=== PATIENT | female | born 1970 | race Caucasian/White ===

== ENCOUNTER 2018-01-04 13:23 | Inpatient (IN) | payer OTHER ==
[2018-01-04 17:06] VITALS: BMI 19.3
--- NOTE | 2018-01-04 17:31 | HP ---
COWS - Scale Resting Pulse: 0= [place] 80 or Below Sweatin=Flushed/Facial Moisture Restless Observation: 1= Difficult to Sit Still Pupil Size: 0= Normal to Room Light Bone or Joint Aches: 1= Mild Discomfort Runny Nose/ Eye Tearin= Runny Nose/Eyes GI Upset > 30mins: 2= Nausea/Diarrhea Tremor Observation: 1= Tremor Jackson, Not Seen Yawning Observation: 1= 1-2x During Session Anxiety or Irritability: 2=Irritable/Anxious Goose Flesh Skin: 0=Smooth Skin COWS Score: 12 Admission [facility] Chief Complaint: Heroin withdrawal symptoms. Allergies/Adverse Reactions: Allergies Allergy/AdvReac Type Severity Reaction Status Date / Time No Known Allergies Allergy Verified 01/04/18 17:11 History of Present Illness: Patient presents for Heroin withdrawal symptoms. Started using heroin and cocaine and age 22. Sniffs up to 8 bags daily. Last dose today. Also smokes 1 pack of cigarettes daily and non-prescription Methadone. Has PMH of HTN, Depression, Anxiety and DM. Patient also shows external pharmacy history for Genvoya and Truvada. Patient denies having HIV and state she took medication to prevent disease. Has stopped taking medication x one year. Denies SI/HI and suicide attempts. Exam Limitations: No Limitations - Ebola screening Have you traveled outside of the country in the last 21 days: No Have you had contact with anyone from an Ebola affected area: No Have you been sick,other than usual withdrawal symptoms: No Do you have a fever: No - Review of Systems Constitutional: Night Sweats, Changes in sleep, Unexplained wgt Loss EENT: reports: Tearing, Nose Congestion Respiratory: reports: Cough Cardiac: reports: No Symptoms Reported GI: reports: Diarrhea, Nausea, Poor Fluid Intake, Abdominal cramping : reports: No Symptoms Reported Musculoskeletal: reports: Back Pain, Joint Pain, Muscle Pain Integumentary: reports: Sweating Neuro: reports: Headache, Tremors Endocrine: reports: Unexplained Weight Loss Hematology: reports: No Symptoms Reported Psychiatric: reports: Orientated x3, Anxious, Depressed Patient History - Patient Medical History Hx Anemia: No Hx Asthma: No Hx Chronic Obstructive Pulmonary Disease (COPD): No Hx Cancer: No Hx Cardiac Disorders: No Hx Congestive Heart Failure: No Hx Hypertension: Yes Hx Hypercholesterolemia: No Hx Pacemaker: No HX Cerebrovascular Accident: No Hx Seizures: No Hx Dementia: No Hx Diabetes: Yes Hx Gastrointestinal Disorders: No Hx Liver Disease: No Hx Genitourinary Disorders: No Hx Sexually Transmitted Disorders: No Hx Renal Disease (ESRD): No Hx Thyroid Disease: No Hx Human Immunodeficiency Virus (HIV): No Hx Hepatitis C: No Hx Depression: Yes Hx Suicide Attempt: No Hx Bipolar Disorder: No Hx Schizophrenia: No - Patient Surgical History Past Surgical History: No Hx Neurologic Surgery: No Hx Cataract Extraction: No Hx Cardiac Surgery: No Hx Lung Surgery: No Hx Breast Surgery: No Hx Breast Biopsy: No Hx Abdominal Surgery: No Hx Appendectomy: No Hx Cholecystectomy: No Hx Genitourinary Surgery: No Hx Section: Yes (C section x 2) Hx Orthopedic Surgery: No Hx Hysterectomy: No Anesthesia Reaction: No - PPD History Previous Implant?: No Documented Results: Negative w/o proof Implanted On Prior R Admission?: No PPD to be Administered?: Yes - Reproductive History Patient is a Female of Child Bearing Age (11 -55 yrs old): Yes Patient : No - Smoking Cessation Smoking history: Current every day smoker Have you smoked in the past 12 months: Yes Aproximately how many cigarettes per day: 20 Hx Chewing Tobacco Use: No Initiated information on smoking cessation: Yes 'Breaking Loose' booklet given: 01/04/18 - Substance & Tx. History Hx Alcohol Use: No Hx Substance Use: Yes Substance Use Type: Cocaine, Heroin Hx Substance Use Treatment: Yes - Substances Abused Heroin Route: SNIFF Frequency: Daily Amount used: 8 BAGS Age of first use: 22 Date of Last Use: 01/04/18 Cocaine Route: Smoking Frequency: Daily Amount used: $50 Age of first use: 22 Date of Last Use: 01/04/18 Family Disease History - Family Disease History Family Disease History: Diabetes: Mother (), Heart Disease: Father ( ), Mother Admission Physical Exam BHS - Vital Signs Vital Signs: Vital Signs - 24 hr 01/04/18 16:32 Temperature 97.5 F L Pulse Rate 63 Respiratory 18 Rate Blood Pressure 108/65 - Physical General Appearance: Yes: Disheveled, Cachetic, Tremorous, Anxious HEENTM: Yes: EOMI, Hearing grossly Normal, Normal ENT Inspection, Normocephalic , Normal Voice, VLADIMIR, Pharynx Normal, Nasal Congestion Respiratory: Yes: Within Normal Limits, Chest Non-Tender, Lungs Clear, Normal Breath Sounds, No Respiratory Distress, No Accessory Muscle Use Neck: Yes: No masses,lesions,Nodules, Supple, Trachea in good position Breast: Yes: Breast Exam Deferred Cardiology: Yes: Regular Rhythm, Regular Rate, S1, S2 Abdominal: Yes: Normal Bowel Sounds, Non Tender, Flat, Soft Genitourinary: Yes: Within Normal Limits Back: Yes: Muscle Spasm Musculoskeletal: Yes: Gait Steady, Back pain, Muscle Pain Extremities: Yes: Normal Range of Motion, Non-Tender, Tremors 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 NML intact, Fully Oriented, Alert, Depressed Affect Integumentary: Yes: Normal Color, Warm, Moist Lymphatic: Yes: Within Normal Limits - Diagnostic (1) Opioid dependence with withdrawal Current Visit: Yes Status: Acute (2) Nicotine dependence Current Visit: Yes Status: Acute Qualifiers: Nicotine product type: cigarettes Substance use status: uncomplicated Qualified Code(s): F17.210 - Nicotine dependence, cigarettes, uncomplicated (3) Cocaine dependence Current Visit: Yes Status: Acute Qualifiers: Substance use status: uncomplicated Qualified Code(s): F14.20 - Cocaine dependence, uncomplicated (4) Diabetes 1.5, managed as type 2 Current Visit: Yes Status: Chronic (5) HTN (hypertension) Current Visit: Yes Status: Chronic Qualifiers: Hypertension type: essential hypertension Qualified Code(s): I10 - Essential (primary) hypertension (6) Weight loss Current Visit: Yes Status: Acute (7) Depressed affect Current Visit: Yes Status: Acute Cleared for Admission S - Detox or Rehab [facility] Level of Care: Medically Managed Detox Regimen/Protocol: Methadone [facility] Breath Alcohol Content Breath Alcohol Content: 0 Urine Pregancy Test - Result Urine Test Results: Negative- NO Line Present Urine Drug Screen - Results Drug Screen Negative: No Urine Drug Screen Results: ANGELA-Cocaine, OPI-Opiates, MTD-Methadone
[2018-01-04] MEDS ORDERED: guaiFENesin/D-METHORPHAN HB 10 ML UNIT-DOSE CUPS PO PRN (17:44)
[2018-01-04] MEDS ORDERED: MAGNESIUM CITRATE 300 ML BOTTLE PO PRN (17:44)
[2018-01-04] MEDS ORDERED: ACETAMINOPHEN 325 MG TABLET (FP) PO PRN (17:44)
[2018-01-04] MEDS ORDERED: MENTHOL/PHENOL 1 EACH UD MM PRN (17:44)
[2018-01-04] MEDS ORDERED: hydrOXYzine PAMOATE 50 MG CAPSULE (FP) PO PRN (17:44)
[2018-01-04] MEDS ORDERED: MAGNESIUM HYDROX 2400MG/30ML ORAL SUSPENSION 30 ML CUP PO PRN (17:44)
[2018-01-04] MEDS ORDERED: MAG HYDROX/AL HYDROX/SIMETH 30 ML UNIT-DOSE CUP PO PRN (17:44)
[2018-01-04] MEDS ORDERED: P-EPHED 60MG/TRIPROLIDI 2.5MG TABLET PO PRN (17:44)
[2018-01-04] MEDS ORDERED: IBUPROFEN 400 MG TABLET (FP) PO PRN (17:44)
[2018-01-04] MEDS ORDERED: LOPERAMIDE HCL 2 MG CAPSULE PO PRN (17:44)
[2018-01-04] MEDS ORDERED: METHADONE HCL 10 MG TABLET (FOR DETOX USE ONLY) PO ONE ×2 (18:48→23:00)
[2018-01-04] MEDS: diazePAM 5 MG TABLET PO PRN (19:10)
[2018-01-04] MEDS ORDERED: MELATONIN 5 MG TABLETS PO PRN (22:00)
[2018-01-04] MEDS ORDERED: INSULIN ASPART 2 UNIT SQ SCH (22:00)
[2018-01-04] MEDS: THIAMINE HCL 100 MG TABLET (FP) PO SCH (22:09)
[2018-01-04] MEDS: INSULIN SLIDING SCALE (NOVOLOG) 1 VIAL SQ SCH (23:04)
[2018-01-05] MEDS: diazePAM 5 MG TABLET PO PRN ×2 (05:17→22:17)
[2018-01-05] MEDS: INSULIN SLIDING SCALE (NOVOLOG) 1 VIAL SQ SCH ×4 (07:57→22:20)
[2018-01-05] MEDS: INSULIN (LEVEMIR) 100 UNITS/ML UNITS SQ SCH (08:04)
[2018-01-05] MEDS ORDERED: METHADONE HCL 10 MG TABLET (FOR DETOX USE ONLY) PO ONE (10:00)
[2018-01-05] MEDS: LISINOPRIL 20 MG TABLET (FP) PO SCH (10:30)
[2018-01-05] MEDS: PRENATAL VITAMINS W/ FOLIC ACID TABLET (FP) PO SCH (10:31)
[2018-01-05] MEDS: NICOTINE POLACRILEX 2 MG GUM BC PRN (10:33)
[2018-01-05 10:48] LABS: CHLORIDE 108 mmol/L (98-107); HEMATOCRIT 34.2 % (32.4-45.2); HEMOGLOBIN 11.5 GM/dL (10.7-15.3); MCH 33.4 pg (25.7-33.7); MCHC 33.7 g/dl (32.0-36.0); MEAN CELL VOLUME 99.1 fl (80-96); MEAN PLT VOLUME 7.9 fl (7.5-11.1); PLATELET COUNT 162 K/MM3 (134-434); POTASSIUM 4.1 mmol/L (3.5-5.1); RBC 3.46 M/mm3 (3.60-5.2); RDW 15.3 % (11.6-15.6); SODIUM 141 mmol/L (136-145); WHITE BLOOD COUNT 4.2 K/mm3 (4.0-10.0)
[2018-01-05 11:04] LABS: ALBUMIN 2.7 g/dl (3.4-5.0); ALK PHOS 67 U/L (45-117); ANION GAP 2 (8-16); BILIRUBIN,TOTAL 0.2 mg/dL (0.2-1.0); BLOOD UREA NITROGEN 20 mg/dL (7-18); CALCIUM 8.6 mg/dL (8.5-10.1); CO2 31 mmol/L (21-32); CREATININE 0.8 mg/dL (0.55-1.02); GLUCOSE,RANDOM 94 mg/dL (74-106); SGOT/AST 27 U/L (15-37); SGPT/ALT 21 U/L (12-78); TOT PROT 5.8 g/dl (6.4-8.2)
[2018-01-05] MEDS: NICOTINE 21 MG/24 HOURS TOPICAL PATCH TD SCH (12:01)
--- NOTE | 2018-01-05 13:26 | PN ---
BHS COWS - Scale Resting Pulse: 1= [place] 81-100 Sweatin= Chills/Flushing Restless Observation: 1= Difficult to Sit Still Pupil Size: 0= Normal to Room Light Bone or Joint Aches: 2= Severe Diffuse Aches Runny Nose/ Eye Tearin= Nasal Congestion GI Upset > 30mins: 2= Nausea/Diarrhea Tremor Observation of Outstretched Hands: 2= Slight Tremor Visible Yawning Observation: 0= None Anxiety or Irritability: 1=Feels Anxious/Irritable Goose Flesh Skin: 3=Piloerection COWS Score: 14 BHS Progress Note (SOAP) Subjective: Tremors, sweats, diarrhea, interrupted sleep, restlessness Objective: 01/05/18 13:25 Vital Signs 01/05/18 01/05/18 06:25 10:00 Temperature 97.9 F 97.5 F L Pulse Rate 88 87 Respiratory 16 18 Rate Blood Pressure 108/66 112/71 Laboratory Last Values WBC 4.2 K/mm3 (4.0-10.0) 01/05/18 07:40 RBC 3.46 M/mm3 (3.60-5.2) L 01/05/18 07:40 Hgb 11.5 GM/dL (10.7-15.3) 01/05/18 07:40 Hct 34.2 % (32.4-45.2) 01/05/18 07:40 MCV 99.1 fl (80-96) H 01/05/18 07:40 MCH 33.4 pg (25.7-33.7) 01/05/18 07:40 MCHC 33.7 g/dl (32.0-36.0) 01/05/18 07:40 RDW 15.3 % (11.6-15.6) 01/05/18 07:40 Plt Count 162 K/MM3 (134-434) 01/05/18 07:40 MPV 7.9 fl (7.5-11.1) 01/05/18 07:40 Sodium 141 mmol/L (136-145) 01/05/18 07:40 Potassium 4.1 mmol/L (3.5-5.1) 01/05/18 07:40 Chloride 108 mmol/L (98-107) H 01/05/18 07:40 Carbon Dioxide 31 mmol/L (21-32) 01/05/18 07:40 Anion Gap 2 (8-16) L 01/05/18 07:40 BUN 20 mg/dL (7-18) H 01/05/18 07:40 Creatinine 0.8 mg/dL (0.55-1.02) 01/05/18 07:40 Creat Clearance w eGFR > 60 (>60) 01/05/18 07:40 POC Glucometer 91 UNITS (80-120) 01/05/18 11:55 Random Glucose 94 mg/dL (74-106) 01/05/18 07:40 Calcium 8.6 mg/dL (8.5-10.1) 01/05/18 07:40 Total Bilirubin 0.2 mg/dL (0.2-1.0) 01/05/18 07:40 AST 27 U/L (15-37) 01/05/18 07:40 ALT 21 U/L (12-78) 01/05/18 07:40 Alkaline Phosphatase 67 U/L (45-117) 01/05/18 07:40 Total Protein 5.8 g/dl (6.4-8.2) L 01/05/18 07:40 Albumin 2.7 g/dl (3.4-5.0) L 01/05/18 07:40 RPR Titer Nonreactive (NONREACTIVE) 01/05/18 07:40 HIV 1&2 Antibody Screen Negative 01/05/18 07:40 HIV P24 Antigen Negative 01/05/18 07:40 Labs noted Assessment: 01/05/18 13:25 Withdrawal sx Plan: Continue detox
--- NOTE | 2018-01-05 14:39 | EKG ---
Test Reason : Blood Pressure : / mmHG Vent. Rate : 064 BPM Atrial Rate : 064 BPM P-R Int : 136 ms QRS Dur : 084 ms QT Int : 444 ms P-R-T Axes : 033 047 044 degrees QTc Int : 458 ms NORMAL SINUS RHYTHM NORMAL ECG NO PREVIOUS ECGS AVAILABLE Confirmed by MD Dilan, Garfield ([id number]) on 01/05/2018 2:39:31 PM Referred By: Confirmed By:Garfield Kong MD
--- NOTE | 2018-01-05 16:25 | CONSULT ---
[facility] Psychiatric Consult - Data Date of interview: 01/05/18 Admission source: [facility] Identifying data: First admission to [facility] for this 47 y/o female seeking detox treatment on for heroin and cocaine dependence.Patient is ,a mother of six,homeless,unemployed and supported on SSI benefits. Substance Abuse History: Confirmed by the patient in this interview.See details in current [facility] report. Smoking history: Current every day smoker. Have you smoked in the past 12 months: Yes. Aproximately how many cigarettes per day: 20. Hx Chewing Tobacco Use: No. Initiated information on smoking cessation: Yes. 'Breaking Loose' booklet given: 01/04/18. - Substance & Tx. History. Hx Alcohol Use: No. Hx Substance Use: Yes. Substance Use Type: Cocaine, Heroin. Hx Substance Use Treatment: Yes. - Substances Abused. Heroin. Route: SNIFF. Frequency: Daily. Amount used: 8 BAGS. Age of first use: 22. Date of Last Use: 01/04/18. Cocaine. Route: Smoking. Frequency: Daily. Amount used: $50. Age of first use: 22. Date of Last Use: 01/04/18 Medical History: Remarkable for peripheral neuropathy,diabetes mellitus, hypertension,past history of withdrawal-related seizures,spinal stenosis, chronic lummbar pain and two sections. Psychiatric History: No reported history of psychiatric hospitalizations.Diagnosed with Bipolar Disorder.Patient indicates that she " used to " be on seroquel and olanzapine.NOT taken for past two months as per self-report.Ms Hadley states that she sees a psychiatrist at a program in the [place] (unable to recall name of clinic).On suboxone maintenace.Patient denies history of suicide attempts. Physical/Sexual Abuse/Trauma History: Patient denies. Additional Comment: Urine Drug Screen Results: ANGELA-Cocaine, OPI-Opiates, MTD- Methadone.Noted. Mental Status Exam - Mental Status Exam Alert and Oriented to: Time, Place, Person Cognitive Function: Grossly Intact Patient Appearance: Disheveled (appears much older than stated age) Mood: Nervous, Withdrawn Affect: Mood Congruent, Constricted Patient Behavior: Sedated (moderately ), Fatigued, Appropriate, Cooperative Speech Pattern: Delayed, Slurred Voice Loudness: Moderately Soft/Quiet Thought Process: Goal Oriented Thought Disorder: Not Present Hallucinations: Denies Suicidal Ideation: Denies Insight/Judgement: Poor Sleep: Poorly (sleepy during interview), Difficulty falling asleep Appetite: Poor, Weight loss Gait/Station: Other (not observed ; patient did not get out of bed during interview) Psychiatric Findings - Problem List ([place] 1, 2,3) (1) Opioid dependence with withdrawal Current Visit: Yes Status: Acute (2) Cocaine dependence Current Visit: Yes Status: Acute Qualifiers: Substance use status: uncomplicated Qualified Code(s): F14.20 - Cocaine dependence, uncomplicated (3) Nicotine dependence Current Visit: Yes Status: Acute Qualifiers: Nicotine product type: cigarettes Substance use status: uncomplicated Qualified Code(s): F17.210 - Nicotine dependence, cigarettes, uncomplicated (4) Substance induced mood disorder Current Visit: Yes Status: Acute (5) Insomnia Current Visit: Yes Status: Acute - Initial Treatment Plan Initial Treatment Plan: Psychoeducation.Sleep hygiene.Detoxification in progress.Observation.Medications reconciled : no evidence of psychotropic medications.Review of pharmacy claims reveals refills issued on 08/15/17 for seroquel 200 mg/hs # 30 tablets.Will not resume seroquel at this time due to patient current sedated state.
[2018-01-05] MEDS ORDERED: INSULIN (NOVOLOG) ASPART 100 UNITS/ML 10ML VIAL ONE (16:36)
[2018-01-05] MEDS: THIAMINE HCL 100 MG TABLET (FP) PO SCH (22:17)
[2018-01-06] MEDS: INSULIN SLIDING SCALE (NOVOLOG) 1 VIAL SQ SCH ×4 (07:34→21:50)
[2018-01-06] MEDS: INSULIN (LEVEMIR) 100 UNITS/ML UNITS SQ SCH (08:00)
[2018-01-06] MEDS ORDERED: METHADONE HCL 5 MG TABLET (FOR DETOX USE ONLY) PO ONE (10:00)
[2018-01-06] MEDS: LISINOPRIL 20 MG TABLET (FP) PO SCH (10:19)
[2018-01-06] MEDS: NICOTINE 21 MG/24 HOURS TOPICAL PATCH TD SCH (10:19)
[2018-01-06] MEDS: NICOTINE POLACRILEX 2 MG GUM BC PRN (10:19)
[2018-01-06] MEDS: PRENATAL VITAMINS W/ FOLIC ACID TABLET (FP) PO SCH (10:19)
--- NOTE | 2018-01-06 15:48 | PN ---
BHS COWS - Scale Resting Pulse: 1= [place] 81-100 Sweatin= Chills/Flushing Restless Observation: 3= Extraneous Movement Pupil Size: 1= Pupils >than Normal Bone or Joint Aches: 2= Severe Diffuse Aches Runny Nose/ Eye Tearin= Runny Nose/Eyes GI Upset > 30mins: 2= Nausea/Diarrhea Tremor Observation of Outstretched Hands: 2= Slight Tremor Visible Yawning Observation: 1= 1-2x During Session Anxiety or Irritability: 2=Irritable/Anxious Goose Flesh Skin: 0=Smooth Skin COWS Score: 17 S Progress Note (SOAP) Subjective: Headache, sweating, feeling weak, diarrhea, interrupted sleep Objective: 01/06/18 15:46 Last Vital Signs Temp Pulse Resp BP Pulse Ox 99.5 F 94 H 16 104/61 01/06/18 13:11 01/06/18 13:11 01/06/18 13:11 01/06/18 13:11 Laboratory Tests 01/04/18 01/04/18 01/05/18 17:20 21:32 05:17 WBC RBC Hgb Hct MCV MCH MCHC RDW Plt Count MPV Sodium Potassium Chloride Carbon Dioxide Anion Gap BUN Creatinine Creat Clearance w eGFR POC Glucometer 125 82 110 Random Glucose Calcium Total Bilirubin AST ALT Alkaline Phosphatase Total Protein Albumin RPR Titer HIV 1&2 Antibody Screen HIV P24 Antigen 01/05/18 01/05/18 01/05/18 07:40 07:40 07:40 WBC 4.2 RBC 3.46 L Hgb 11.5 Hct 34.2 MCV 99.1 H MCH 33.4 MCHC 33.7 RDW 15.3 Plt Count 162 MPV 7.9 Sodium 141 Potassium 4.1 Chloride 108 H Carbon Dioxide 31 Anion Gap 2 L BUN 20 H Creatinine 0.8 Creat Clearance w eGFR > 60 POC Glucometer Random Glucose 94 Calcium 8.6 Total Bilirubin 0.2 AST 27 ALT 21 Alkaline Phosphatase 67 Total Protein 5.8 L Albumin 2.7 L RPR Titer HIV 1&2 Antibody Screen Negative HIV P24 Antigen Negative 01/05/18 01/05/18 01/05/18 07:40 11:55 16:16 WBC RBC Hgb Hct MCV MCH MCHC RDW Plt Count MPV Sodium Potassium Chloride Carbon Dioxide Anion Gap BUN Creatinine Creat Clearance w eGFR POC Glucometer 91 185 Random Glucose Calcium Total Bilirubin AST ALT Alkaline Phosphatase Total Protein Albumin RPR Titer Nonreactive HIV 1&2 Antibody Screen HIV P24 Antigen 01/05/18 01/06/18 01/06/18 22:18 05:44 11:45 WBC RBC Hgb Hct MCV MCH MCHC RDW Plt Count MPV Sodium Potassium Chloride Carbon Dioxide Anion Gap BUN Creatinine Creat Clearance w eGFR POC Glucometer 154 107 95 Random Glucose Calcium Total Bilirubin AST ALT Alkaline Phosphatase Total Protein Albumin RPR Titer HIV 1&2 Antibody Screen HIV P24 Antigen Labs reviewed: bun 20 Assessment: 01/06/18 15:47 Withdrawal symptoms Noted with azotemia Plan: Continue detox Azotemia: encourage PO hydration (water)
[2018-01-06] MEDS ORDERED: INSULIN (NOVOLOG) ASPART 100 UNITS/ML 10ML VIAL ONE (16:43)
[2018-01-06] MEDS: diazePAM 5 MG TABLET PO PRN (22:12)
[2018-01-06] MEDS: THIAMINE HCL 100 MG TABLET (FP) PO SCH (22:12)
[2018-01-07] MEDS: INSULIN SLIDING SCALE (NOVOLOG) 1 VIAL SQ SCH (07:37)
[2018-01-07 09:39] LABS: URINE APPEARANCE CLEAR; URINE BILIRUBIN NEGATIVE (<2.0 mg/dL); URINE COLOR STRAW; URINE GLUCOSE (UA) NEGATIVE (NEGATIVE); URINE KETONE NEGATIVE (NEGATIVE); URINE LEUK ESTERASE NEGATIVE (NEGATIVE); URINE NITRITE NEGATIVE (NEGATIVE); URINE PROTEIN NEGATIVE (NEGATIVE); URINE UROBILINOGEN NEGATIVE mg/dL (0.2-1.0)
[2018-01-07] MEDS ORDERED: METHADONE HCL 5 MG TABLET (FOR DETOX USE ONLY) PO ONE (10:00)
[2018-01-07 10:21] VITALS: BP 110/72; PULSE 72; TEMP 98.2
[2018-01-07] MEDS: PRENATAL VITAMINS W/ FOLIC ACID TABLET (FP) PO SCH (10:31)
[2018-01-07] MEDS: NICOTINE 21 MG/24 HOURS TOPICAL PATCH TD SCH (10:32)
[2018-01-07] MEDS: LISINOPRIL 20 MG TABLET (FP) PO SCH (10:32)
[2018-01-07] MEDS: INSULIN (LEVEMIR) 100 UNITS/ML UNITS SQ SCH (10:52)
--- NOTE | 2018-01-07 10:53 | PN ---
BHS Progress Note (SOAP) Subjective: joint pain body ache tremor sweat restlessness anxiety patient wants to terminate the detox regimen alert oriented x3 no acute distress Objective: 01/07/18 10:52 Vital Signs Temperature 98.2 F 01/07/18 10:20 Pulse Rate 72 01/07/18 10:20 Respiratory Rate 20 01/07/18 10:20 Blood Pressure 110/72 01/07/18 10:20 O2 Sat by Pulse Oximetry (%) Laboratory Last Values WBC 4.2 K/mm3 (4.0-10.0) 01/05/18 07:40 RBC 3.46 M/mm3 (3.60-5.2) L 01/05/18 07:40 Hgb 11.5 GM/dL (10.7-15.3) 01/05/18 07:40 Hct 34.2 % (32.4-45.2) 01/05/18 07:40 MCV 99.1 fl (80-96) H 01/05/18 07:40 MCH 33.4 pg (25.7-33.7) 01/05/18 07:40 MCHC 33.7 g/dl (32.0-36.0) 01/05/18 07:40 RDW 15.3 % (11.6-15.6) 01/05/18 07:40 Plt Count 162 K/MM3 (134-434) 01/05/18 07:40 MPV 7.9 fl (7.5-11.1) 01/05/18 07:40 Sodium 141 mmol/L (136-145) 01/05/18 07:40 Potassium 4.1 mmol/L (3.5-5.1) 01/05/18 07:40 Chloride 108 mmol/L (98-107) H 01/05/18 07:40 Carbon Dioxide 31 mmol/L (21-32) 01/05/18 07:40 Anion Gap 2 (8-16) L 01/05/18 07:40 BUN 20 mg/dL (7-18) H 01/05/18 07:40 Creatinine 0.8 mg/dL (0.55-1.02) 01/05/18 07:40 Creat Clearance w eGFR > 60 (>60) 01/05/18 07:40 POC Glucometer 88 UNITS (80-120) 01/07/18 05:50 Random Glucose 94 mg/dL (74-106) 01/05/18 07:40 Calcium 8.6 mg/dL (8.5-10.1) 01/05/18 07:40 Total Bilirubin 0.2 mg/dL (0.2-1.0) 01/05/18 07:40 AST 27 U/L (15-37) 01/05/18 07:40 ALT 21 U/L (12-78) 01/05/18 07:40 Alkaline Phosphatase 67 U/L (45-117) 01/05/18 07:40 Total Protein 5.8 g/dl (6.4-8.2) L 01/05/18 07:40 Albumin 2.7 g/dl (3.4-5.0) L 01/05/18 07:40 Urine Color Straw 01/07/18 08:30 Urine Appearance Clear 01/07/18 08:30 Urine pH 5.0 (5.0-8.0) 01/07/18 08:30 Ur Specific [place] 1.009 (1.001-1.035) 01/07/18 08:30 Urine Protein Negative (NEGATIVE) 01/07/18 08:30 Urine Glucose (UA) Negative (NEGATIVE) 01/07/18 08:30 Urine Ketones Negative (NEGATIVE) 01/07/18 08:30 Urine Blood Negative (NEGATIVE) 01/07/18 08:30 Urine Nitrite Negative (NEGATIVE) 01/07/18 08:30 Urine Bilirubin Negative (<2.0 mg/dL) 01/07/18 08:30 Urine Urobilinogen Negative mg/dL (0.2-1.0) 01/07/18 08:30 Ur Leukocyte Esterase Negative (NEGATIVE) 01/07/18 08:30 RPR Titer Nonreactive (NONREACTIVE) 01/05/18 07:40 HIV 1&2 Antibody Screen Negative 01/05/18 07:40 HIV P24 Antigen Negative 01/05/18 07:40 lab noted Assessment: 01/07/18 10:53 withdrawal sx diabetes ii Plan: continue detox patient agrees to consider sobriety recovery
--- NOTE | 2018-01-07 11:58 | DS ---
[facility] Detox Discharge Summary Admission Date: 01/04/18 Discharge Date: 01/07/18 - History Present History: Opioid Dependence Additional Comments: 47 years old female admitted 01/04/18 for opioid detox wants to leave the detox facility "something to do" alert oriented x 3 no acute distress patient agrees to consider community self help groups - Physical Exam Results Vital Signs: Vital Signs Temperature 98.2 F 01/07/18 10:20 Pulse Rate 72 01/07/18 10:20 Respiratory Rate 20 01/07/18 10:20 Blood Pressure 110/72 01/07/18 10:20 O2 Sat by Pulse Oximetry (%) Pertinent Admission Physical Exam Findings: withdrawal sx Vital Signs Temperature 98.2 F 01/07/18 10:20 Pulse Rate 72 01/07/18 10:20 Respiratory Rate 20 01/07/18 10:20 Blood Pressure 110/72 01/07/18 10:20 O2 Sat by Pulse Oximetry (%) Laboratory Last Values WBC 4.2 K/mm3 (4.0-10.0) 01/05/18 07:40 RBC 3.46 M/mm3 (3.60-5.2) L 01/05/18 07:40 Hgb 11.5 GM/dL (10.7-15.3) 01/05/18 07:40 Hct 34.2 % (32.4-45.2) 01/05/18 07:40 MCV 99.1 fl (80-96) H 01/05/18 07:40 MCH 33.4 pg (25.7-33.7) 01/05/18 07:40 MCHC 33.7 g/dl (32.0-36.0) 01/05/18 07:40 RDW 15.3 % (11.6-15.6) 01/05/18 07:40 Plt Count 162 K/MM3 (134-434) 01/05/18 07:40 MPV 7.9 fl (7.5-11.1) 01/05/18 07:40 Sodium 141 mmol/L (136-145) 01/05/18 07:40 Potassium 4.1 mmol/L (3.5-5.1) 01/05/18 07:40 Chloride 108 mmol/L (98-107) H 01/05/18 07:40 Carbon Dioxide 31 mmol/L (21-32) 01/05/18 07:40 Anion Gap 2 (8-16) L 01/05/18 07:40 BUN 20 mg/dL (7-18) H 01/05/18 07:40 Creatinine 0.8 mg/dL (0.55-1.02) 01/05/18 07:40 Creat Clearance w eGFR > 60 (>60) 01/05/18 07:40 POC Glucometer 88 UNITS (80-120) 01/07/18 05:50 Random Glucose 94 mg/dL (74-106) 01/05/18 07:40 Calcium 8.6 mg/dL (8.5-10.1) 01/05/18 07:40 Total Bilirubin 0.2 mg/dL (0.2-1.0) 01/05/18 07:40 AST 27 U/L (15-37) 01/05/18 07:40 ALT 21 U/L (12-78) 01/05/18 07:40 Alkaline Phosphatase 67 U/L (45-117) 01/05/18 07:40 Total Protein 5.8 g/dl (6.4-8.2) L 01/05/18 07:40 Albumin 2.7 g/dl (3.4-5.0) L 01/05/18 07:40 Urine Color Straw 01/07/18 08:30 Urine Appearance Clear 01/07/18 08:30 Urine pH 5.0 (5.0-8.0) 01/07/18 08:30 Ur Specific [place] 1.009 (1.001-1.035) 01/07/18 08:30 Urine Protein Negative (NEGATIVE) 01/07/18 08:30 Urine Glucose (UA) Negative (NEGATIVE) 01/07/18 08:30 Urine Ketones Negative (NEGATIVE) 01/07/18 08:30 Urine Blood Negative (NEGATIVE) 01/07/18 08:30 Urine Nitrite Negative (NEGATIVE) 01/07/18 08:30 Urine Bilirubin Negative (<2.0 mg/dL) 01/07/18 08:30 Urine Urobilinogen Negative mg/dL (0.2-1.0) 01/07/18 08:30 Ur Leukocyte Esterase Negative (NEGATIVE) 01/07/18 08:30 RPR Titer Nonreactive (NONREACTIVE) 01/05/18 07:40 HIV 1&2 Antibody Screen Negative 01/05/18 07:40 HIV P24 Antigen Negative 01/05/18 07:40 lab noted - Treatment Hospital Course: Detox Protocol Followed, Responded well Patient has Accepted a Rehab Referral to: community self management groups - Medication Discharge Medications: Ambulatory Orders Insulin (Levemir) [Levemir Vial] 26 unit SQ DAILY 01/04/18 Insulin Aspart [Novolog] 2 unit SQ ACHS 01/04/18 Lisinopril 20 mg PO DAILY 01/04/18 - Diagnosis (1) Opioid dependence with withdrawal Current Visit: Yes Status: Acute (2) Diabetes 1.5, managed as type 2 Current Visit: Yes Status: Chronic (3) HTN (hypertension) Current Visit: Yes Status: Chronic Qualifiers: Hypertension type: essential hypertension Qualified Code(s): I10 - Essential (primary) hypertension (4) Nicotine dependence Current Visit: Yes Status: Chronic Qualifiers: Nicotine product type: cigarettes Substance use status: uncomplicated Qualified Code(s): F17.210 - Nicotine dependence, cigarettes, uncomplicated - AMA Did Patient Leave Against Medical Advice: Yes
[2018-01-07] MEDS ORDERED: INSULIN SLIDING SCALE (NOVOLOG) 1 VIAL SQ SCH (16:30)
[2018-01-08] MEDS ORDERED: METHADONE HCL 10 MG TABLET (FOR DETOX USE ONLY) PO ONE (10:00)
[2018-01-09] MEDS ORDERED: METHADONE HCL 5 MG TABLET (FOR DETOX USE ONLY) PO ONE (06:00)
== END 2018-01-07 11:30 | disposition left against medical advice (07) | DRG 770 ==
LOC: YASAS 13:23 → Y6N 17:19
PROVIDERS: ADMIT Internal Medicine; ATTEND Internal Medicine
PROC: HZ2ZZZZ Detoxification Services for Substance Abuse Treatment (ICD-10-PCS; principal; 2018-01-04)
DX: F10.230 Alcohol dependence with withdrawal, uncomplicated (principal); F14.20 Cocaine dependence, uncomplicated; F17.210 Nicotine dependence, cigarettes, uncomplicated; F19.24 Other psychoactive substance dependence with psychoactive substance-induced mood disorder; I10 Essential (primary) hypertension; E11.9 Type 2 diabetes mellitus without complications; Z79.4 Long term (current) use of insulin; R79.89 Other specified abnormal findings of blood chemistry
CPT/HCPCS: 36415; 80053; 81003; 82962; 85027; 86593; 87389; 93005; 93010

== ENCOUNTER 2019-11-14 21:55 | Inpatient (IN) | payer OTHER ==
[2019-11-14] MEDS ORDERED: ALBUTEROL SO4 0.083% IH SOL 2.5 MG/3 ML VIAL.NEB. NEB ONE (22:33)
[2019-11-15] MEDS ORDERED: ALBUTEROL SO4 0.083% IH SOL 2.5 MG/3 ML VIAL.NEB. NEB ONE (00:18)
[2019-11-15 02:11] LABS: BASO % 0.7 % (0-2.0); EOS % 1.8 % (0-4.5); HEMATOCRIT 36.2 % (32.4-45.2); HEMOGLOBIN 12.1 GM/dL (10.7-15.3); LYMPH % 28.4 % (8-40); MCH 31.5 pg (25.7-33.7); MCHC 33.5 g/dl (32.0-36.0); MEAN CELL VOLUME 94.1 fl (80-96); MEAN PLT VOLUME 7.7 fl (7.5-11.1); MONO % 6.7 % (3.8-10.2); NEUT % 62.4 % (42.8-82.8); PLATELET COUNT 201 K/MM3 (134-434); RBC 3.85 M/mm3 (3.60-5.2); RDW 17.1 % (11.6-15.6)
[2019-11-15 02:35] LABS: ALBUMIN 2.6 g/dl (3.4-5.0); BILIRUBIN,TOTAL 0.4 mg/dL (0.2-1); BLOOD UREA NITROGEN 11.8 mg/dL (7-18); CALCIUM 8.5 mg/dL (8.5-10.1); CREATININE 0.8 mg/dL (0.55-1.3); POTASSIUM 4.1 mmol/L (3.5-5.1); TOT PROT 7.4 g/dl (6.4-8.2)
[2019-11-15] MEDS ORDERED: ALBUTEROL SO4 2.5/IPRATROPIUM 0.5 INH SOL 3 ML VIAL.NEB. NEB PRN (05:53)
[2019-11-15] MEDS: INSULIN SLIDING SCALE (NOVOLOG) 1 VIAL SQ SCH ×5 (07:59→21:43)
[2019-11-15] MEDS ORDERED: ENOXAPARIN NA (PORCINE) 40 MG/0.4 ML DISP.SYRIN SQ ONE (08:21)
[2019-11-15] MEDS: ENOXAPARIN NA (PORCINE) 40 MG/0.4 ML DISP.SYRIN SQ SCH (09:13)
[2019-11-15 09:25] LABS: ALBUMIN 2.9 g/dl (3.4-5.0); BILIRUBIN,TOTAL 0.4 mg/dL (0.2-1); BLOOD UREA NITROGEN 9.4 mg/dL (7-18); CALCIUM 9.7 mg/dL (8.5-10.1); CREATININE 0.7 mg/dL (0.55-1.3); MAGNESIUM 1.9 mg/dL (1.8-2.4); PHOSPHOROUS 2.6 mg/dL (2.5-4.9); POTASSIUM 3.9 mmol/L (3.5-5.1); TOT PROT 8.1 g/dl (6.4-8.2)
[2019-11-15 11:20] LABS: BASO % 0.4 % (0-2.0); EOS % 0.4 % (0-4.5); HEMATOCRIT 38.4 % (32.4-45.2); HEMOGLOBIN 12.9 GM/dL (10.7-15.3); LYMPH % 23.1 % (8-40); MCH 31.3 pg (25.7-33.7); MCHC 33.6 g/dl (32.0-36.0); MEAN CELL VOLUME 93.4 fl (80-96); MONO % 5.8 % (3.8-10.2); NEUT % 70.3 % (42.8-82.8); PLATELET COUNT 233 K/MM3 (134-434); RBC 4.11 M/mm3 (3.60-5.2); RDW 17.3 % (11.6-15.6); WHITE BLOOD COUNT 7.4 K/mm3 (4.0-10.0)
[2019-11-15] MEDS ORDERED: ALBUTEROL SO4 0.083% IH SOL 2.5 MG/3 ML VIAL.NEB. NEB PRN (13:51)
[2019-11-15] MEDS: AZITHROMYCIN IVPB 500 MG/250 ML BAG IVPB SCH (17:38)
[2019-11-15 19:38] VITALS: BMI 19.2
[2019-11-15] MEDS: BUDESONIDE/FORMETEROL FUMARATE 160/4.5 mcg INHALER IH SCH ×2 (21:43→23:48)
[2019-11-15] MEDS ORDERED: ONDANSETRON 4 MG/2 ML VIAL IVPUSH PRN (23:33)
[2019-11-16] MEDS ORDERED: ACETAMINOPHEN 1000 MG/100 ML VIAL (NON FORMULARY) IVPB ONE (02:12)
[2019-11-16] MEDS: INSULIN SLIDING SCALE (NOVOLOG) 1 VIAL SQ SCH ×4 (06:13→22:28)
[2019-11-16] MEDS: ALBUTEROL SO4 2.5/IPRATROPIUM 0.5 INH SOL 3 ML VIAL.NEB. NEB SCH ×4 (08:10→21:55)
[2019-11-16] MEDS ORDERED: LORazepam 1 MG TABLET PO PRN ×2 (09:03→17:09)
[2019-11-16] MEDS: MULTIVITAMINS (DAILY MVI) TABLET (FP) PO SCH (09:52)
[2019-11-16] MEDS: LISINOPRIL 20 MG TABLET PO SCH (09:52)
[2019-11-16] MEDS: ENOXAPARIN NA (PORCINE) 40 MG/0.4 ML DISP.SYRIN SQ SCH (09:53)
[2019-11-16] MEDS: FOLIC ACID 1 MG TABLET (FP) PO SCH (09:53)
[2019-11-16] MEDS: LORazepam 1 MG TABLET PO SCH ×5 (09:54→22:30)
[2019-11-16] MEDS: AZITHROMYCIN IVPB 500 MG/250 ML BAG IVPB SCH (09:54)
[2019-11-16] MEDS: THIAMINE HCL 100 MG TABLET (FP) PO SCH (10:01)
[2019-11-16] MEDS: BUDESONIDE/FORMETEROL FUMARATE 160/4.5 mcg INHALER IH SCH ×2 (10:07→22:02)
[2019-11-16] MEDS ORDERED: cloNIDine HCL 0.1 MG TABLET PO PRN ×2 (10:42→17:09)
[2019-11-16] MEDS ORDERED: METHADONE HCL 10 MG TABLET PO ONE ×2 (11:00→17:30)
[2019-11-16] MEDS ORDERED: ONDANSETRON 4 MG/2 ML VIAL IVPUSH PRN (11:18)
[2019-11-16] MEDS ORDERED: ONDANSETRON 4 MG/2 ML VIAL IM PRN (11:23)
[2019-11-16 11:49] LABS: BASO % 0.5 % (0-2.0); HEMATOCRIT 40.2 % (32.4-45.2); HEMOGLOBIN 13.7 GM/dL (10.7-15.3); LYMPH % 26.2 % (8-40); MCH 31.4 pg (25.7-33.7); MEAN CELL VOLUME 92.4 fl (80-96); MEAN PLT VOLUME 7.9 fl (7.5-11.1); MONO % 6.3 % (3.8-10.2); PLATELET COUNT 274 K/MM3 (134-434); RBC 4.35 M/mm3 (3.60-5.2); RDW 16.9 % (11.6-15.6); WHITE BLOOD COUNT 5.8 K/mm3 (4.0-10.0)
[2019-11-16] MEDS ORDERED: METHADONE HCL 10 MG/1 ML (20ML VIAL) IM ONE (11:53)
[2019-11-16 12:10] LABS: BILIRUBIN,TOTAL 0.3 mg/dL (0.2-1); BLOOD UREA NITROGEN 15.7 mg/dL (7-18); CALCIUM 9.6 mg/dL (8.5-10.1); CREATININE 0.8 mg/dL (0.55-1.3); MAGNESIUM 2.2 mg/dL (1.8-2.4); POTASSIUM 3.5 mmol/L (3.5-5.1); TOT PROT 8.4 g/dl (6.4-8.2)
[2019-11-17] MEDS: LORazepam 1 MG TABLET PO SCH ×4 (06:03→22:11)
[2019-11-17] MEDS: INSULIN SLIDING SCALE (NOVOLOG) 1 VIAL SQ SCH ×4 (06:51→22:17)
[2019-11-17] MEDS ORDERED: SODIUM CHLORIDE 500 ML IV STA (07:44)
[2019-11-17 09:12] LABS: BASO % 0.8 % (0-2.0); EOS % 0.8 % (0-4.5); HEMATOCRIT 38.7 % (32.4-45.2); HEMOGLOBIN 13.1 GM/dL (10.7-15.3); LYMPH % 36.9 % (8-40); MCH 31.4 pg (25.7-33.7); MCHC 33.8 g/dl (32.0-36.0); MEAN PLT VOLUME 7.4 fl (7.5-11.1); MONO % 7.4 % (3.8-10.2); NEUT % 54.1 % (42.8-82.8); PLATELET COUNT 279 K/MM3 (134-434); RBC 4.16 M/mm3 (3.60-5.2); RDW 16.7 % (11.6-15.6); WHITE BLOOD COUNT 5.7 K/mm3 (4.0-10.0)
[2019-11-17 09:28] LABS: INR 1.02 (0.83-1.09); PH,URINE 5.5 (5.0-8.0); URINE APPEARANCE CLEAR; URINE BILIRUBIN NEGATIVE (NEGATIVE); URINE COLOR YELLOW; URINE GLUCOSE (UA) NEGATIVE (NEGATIVE); URINE KETONE NEGATIVE (NEGATIVE); URINE LEUK ESTERASE NEGATIVE (NEGATIVE); URINE NITRITE NEGATIVE (NEGATIVE); URINE PROTEIN NEGATIVE (NEGATIVE); URINE UROBILINOGEN 0.2 mg/dL (0.2-1.0)
[2019-11-17 09:41] LABS: ALBUMIN 2.9 g/dl (3.4-5.0); BILIRUBIN,TOTAL 0.5 mg/dL (0.2-1); BLOOD UREA NITROGEN 17.1 mg/dL (7-18); CALCIUM 9.5 mg/dL (8.5-10.1); CREATININE 0.9 mg/dL (0.55-1.3); POTASSIUM 4.6 mmol/L (3.5-5.1); TOT PROT 7.9 g/dl (6.4-8.2)
[2019-11-17] MEDS ORDERED: PT OWN MED DRAWER 7, Y5N ONE (09:42)
[2019-11-17] MEDS: FOLIC ACID 1 MG TABLET (FP) PO SCH (09:45)
[2019-11-17] MEDS: BUDESONIDE/FORMETEROL FUMARATE 160/4.5 mcg INHALER IH SCH ×2 (09:45→22:18)
[2019-11-17] MEDS: ENOXAPARIN NA (PORCINE) 40 MG/0.4 ML DISP.SYRIN SQ SCH (09:45)
[2019-11-17] MEDS: LISINOPRIL 20 MG TABLET PO SCH (09:45)
[2019-11-17] MEDS: THIAMINE HCL 100 MG TABLET (FP) PO SCH (09:45)
[2019-11-17] MEDS: MULTIVITAMINS (DAILY MVI) TABLET (FP) PO SCH (09:45)
[2019-11-17] MEDS: AZITHROMYCIN IVPB 500 MG/250 ML BAG IVPB SCH (09:45)
[2019-11-17] MEDS ORDERED: METHADONE HCL 10 MG TABLET ONE (09:47)
[2019-11-17] MEDS ORDERED: METHADONE HCL 5 MG TABLET ONE (09:47)
[2019-11-17] MEDS ORDERED: METHADONE 20 MG, METHADONE 5 MG PO ONE ×2 (10:00)
[2019-11-17] MEDS ORDERED: INSULIN (NOVOLOG) ASPART 100 UNITS/ML 10ML VIAL ONE (10:32)
[2019-11-18] MEDS ORDERED: LORazepam 1 MG TABLET PO SCH (05:00)
[2019-11-18] MEDS: LORazepam 1 MG TABLET PO SCH ×4 (05:30→22:22)
[2019-11-18] MEDS: INSULIN SLIDING SCALE (NOVOLOG) 1 VIAL SQ SCH ×4 (06:22→22:22)
[2019-11-18 08:44] LABS: BASO % 0.9 % (0-2.0); EOS % 1.7 % (0-4.5); HEMATOCRIT 35.3 % (32.4-45.2); HEMOGLOBIN 11.7 GM/dL (10.7-15.3); LYMPH % 42.6 % (8-40); MCH 31.1 pg (25.7-33.7); MCHC 33.2 g/dl (32.0-36.0); MEAN CELL VOLUME 93.8 fl (80-96); MEAN PLT VOLUME 7.7 fl (7.5-11.1); MONO % 8.5 % (3.8-10.2); NEUT % 46.3 % (42.8-82.8); PLATELET COUNT 240 K/MM3 (134-434); RBC 3.76 M/mm3 (3.60-5.2); RDW 16.8 % (11.6-15.6); WHITE BLOOD COUNT 4.7 K/mm3 (4.0-10.0)
[2019-11-18 09:05] LABS: ALBUMIN 2.5 g/dl (3.4-5.0); BILIRUBIN,TOTAL 0.2 mg/dL (0.2-1); BLOOD UREA NITROGEN 23.3 mg/dL (7-18); CALCIUM 8.8 mg/dL (8.5-10.1); CREATININE 0.8 mg/dL (0.55-1.3); MAGNESIUM 1.9 mg/dL (1.8-2.4); POTASSIUM 4.7 mmol/L (3.5-5.1); TOT PROT 6.9 g/dl (6.4-8.2)
[2019-11-18] MEDS ORDERED: METHADONE HCL 10 MG TABLET PO ONE ×2 (10:00)
[2019-11-18] MEDS: FOLIC ACID 1 MG TABLET (FP) PO SCH (10:38)
[2019-11-18] MEDS: MULTIVITAMINS (DAILY MVI) TABLET (FP) PO SCH (10:38)
[2019-11-18] MEDS: AZITHROMYCIN IVPB 500 MG/250 ML BAG IVPB SCH (10:39)
[2019-11-18] MEDS: ENOXAPARIN NA (PORCINE) 40 MG/0.4 ML DISP.SYRIN SQ SCH (10:39)
[2019-11-18] MEDS: THIAMINE HCL 100 MG TABLET (FP) PO SCH (10:39)
[2019-11-18] MEDS: LISINOPRIL 20 MG TABLET PO SCH (10:39)
[2019-11-18] MEDS: BUDESONIDE/FORMETEROL FUMARATE 160/4.5 mcg INHALER IH SCH ×2 (10:47→22:22)
[2019-11-18] MEDS: ALBUTEROL SO4 2.5/IPRATROPIUM 0.5 INH SOL 3 ML VIAL.NEB. NEB SCH (20:30)
[2019-11-19] MEDS ORDERED: LORazepam 0.5 MG TABLET PO PRN ×2
[2019-11-19] MEDS ORDERED: LORazepam 0.5 MG TABLET PO SCH (05:00)
[2019-11-19] MEDS: INSULIN SLIDING SCALE (NOVOLOG) 1 VIAL SQ SCH ×2 (06:23→11:21)
[2019-11-19] MEDS: LORazepam 0.5 MG TABLET PO SCH ×2 (06:27→12:08)
[2019-11-19] MEDS ORDERED: INSULIN (NOVOLOG) ASPART 100 UNITS/ML 10ML VIAL ONE (06:38)
[2019-11-19 09:10] LABS: BASO % 0.7 % (0-2.0); EOS % 1.4 % (0-4.5); HEMATOCRIT 35.9 % (32.4-45.2); HEMOGLOBIN 12.1 GM/dL (10.7-15.3); LYMPH % 43.7 % (8-40); MCH 31.7 pg (25.7-33.7); MCHC 33.6 g/dl (32.0-36.0); MEAN CELL VOLUME 94.3 fl (80-96); MONO % 7.6 % (3.8-10.2); NEUT % 46.6 % (42.8-82.8); PLATELET COUNT 236 K/MM3 (134-434); RBC 3.81 M/mm3 (3.60-5.2); RDW 16.6 % (11.6-15.6); WHITE BLOOD COUNT 4.8 K/mm3 (4.0-10.0)
[2019-11-19] MEDS: ALBUTEROL SO4 2.5/IPRATROPIUM 0.5 INH SOL 3 ML VIAL.NEB. NEB SCH ×3 (09:15→15:31)
[2019-11-19 09:44] LABS: ALBUMIN 2.9 g/dl (3.4-5.0); BILIRUBIN,TOTAL 0.1 mg/dL (0.2-1); BLOOD UREA NITROGEN 25.9 mg/dL (7-18); CALCIUM 9.4 mg/dL (8.5-10.1); CREATININE 0.8 mg/dL (0.55-1.3); POTASSIUM 5.1 mmol/L (3.5-5.1); TOT PROT 7.2 g/dl (6.4-8.2)
[2019-11-19] MEDS ORDERED: METHADONE 10 MG, METHADONE 5 MG PO ONE ×2 (10:00)
[2019-11-19] MEDS ORDERED: METHADONE HCL 10 MG TABLET ONE (10:47)
[2019-11-19] MEDS ORDERED: METHADONE HCL 5 MG TABLET ONE (10:48)
[2019-11-19] MEDS: ENOXAPARIN NA (PORCINE) 40 MG/0.4 ML DISP.SYRIN SQ SCH (11:14)
[2019-11-19] MEDS: AZITHROMYCIN IVPB 500 MG/250 ML BAG IVPB SCH (11:15)
[2019-11-19] MEDS: MULTIVITAMINS (DAILY MVI) TABLET (FP) PO SCH (11:17)
[2019-11-19] MEDS: LISINOPRIL 20 MG TABLET PO SCH (11:17)
[2019-11-19] MEDS: BUDESONIDE/FORMETEROL FUMARATE 160/4.5 mcg INHALER IH SCH (11:18)
[2019-11-19] MEDS: FOLIC ACID 1 MG TABLET (FP) PO SCH (11:18)
[2019-11-19 11:26] VITALS: BP 98/68; PULSE 95; TEMP 98.3
[2019-11-19] MEDS: THIAMINE HCL 100 MG TABLET (FP) PO SCH (12:08)
[2019-11-19] MEDS ORDERED: PT OWN MED DRAWER 7, Y5N ONE (12:36)
[2019-11-19] MEDS ORDERED: AZITHROMYCIN 250 MG TABLET PO ONE (14:00)
[2019-11-20] MEDS ORDERED: LORazepam 0.5 MG TABLET PO ONE ×2 (05:00)
[2019-11-20] MEDS ORDERED: METHADONE HCL 10 MG TABLET PO ONE ×2 (10:00)
[2019-11-21] MEDS ORDERED: METHADONE HCL 5 MG TABLET PO ONE ×2 (06:00)
== END 2019-11-19 16:22 | disposition other institution (70) | DRG 140 ==
LOC: JER 21:55 → JERBED 11-15 05:43 → J8W 11-15 15:52
PROVIDERS: ADMIT Internal Medicine; ATTEND Nurse Practitioner Family
PROC: HZ2ZZZZ Detoxification Services for Substance Abuse Treatment (ICD-10-PCS; principal; 2019-11-15)
DX: J44.0 Chronic obstructive pulmonary disease with (acute) lower respiratory infection (principal); J44.1 Chronic obstructive pulmonary disease with (acute) exacerbation; F11.23 Opioid dependence with withdrawal; F10.20 Alcohol dependence, uncomplicated; R11.2 Nausea with vomiting, unspecified; R50.9 Fever, unspecified; F17.210 Nicotine dependence, cigarettes, uncomplicated; E11.9 Type 2 diabetes mellitus without complications; J44.9 Chronic obstructive pulmonary disease, unspecified; J20.9 Acute bronchitis, unspecified; Z68.1 Body mass index [BMI] 19.9 or less, adult; I10 Essential (primary) hypertension; B34.9 Viral infection, unspecified; E46 Unspecified protein-calorie malnutrition; R64 Cachexia
CPT/HCPCS: 36415; 71045-TC-FY; 80053; 81003; 82550; 82962; 83735; 84100; 84484; 85025; 85610; 86359; 86360; 87040; 87633; 87798; 87804; 87807; 87899; 93005; 93010; 94640; 97116-GP; 97161-GP; 99285-25; J0131; U0002